=== PATIENT | female | born 1965 | race Caucasian/White ===

== ENCOUNTER 2020-10-07 06:01 | Outpatient (REF) | payer OTHER, SELFPAY ==
--- NOTE | 2020-10-07 06:06 | CT_ITS ---
EXAMINATION: CT ABDOMEN AND PELVIS WITH CONTRAST CLINICAL INFORMATION: Dysuria. COMPARISON: None. TECHNIQUE: Multidetector volumetric images were obtained from the superior aspect of the liver through the pubic symphysis following administration 85 mL of Omnipaque 350 intravenous contrast. Sagittal and coronal reformatted images were obtained on the technologist's workstation. Oral contrast: No. This CT examination was performed using dose optimization techniques as appropriate, variously including the following: *Automated exposure control *Adjustment of mA and/or kV according to patient size (this includes techniques or standardized protocols for targeted exams where dose is matched to indication/reason for exam; i.e. extremities or head) *Use of iterative reconstruction technique DLP: 385 mGy-cm FINDINGS: LUNG BASES: The lung bases are clear. The heart size is normal. LIVER, GALLBLADDER, AND BILIARY TREE: The liver is normal in size, shape, and attenuation. No focal hepatic lesion or biliary ductal dilatation is present. The gallbladder is unremarkable with no evidence of radiopaque gallstones, gallbladder wall thickening, or obvious pericholecystic inflammatory changes. PANCREAS: Unremarkable. SPLEEN: Unremarkable. ADRENAL GLANDS: The left adrenal gland is enlarged. The right adrenal gland is normal. KIDNEYS AND URETERS: The kidneys are normal in size, shape, and attenuation. No hydronephrosis, hydroureter, or calculi seen. No perinephric stranding. There are bilateral renal cysts. BLADDER: The bladder is contracted and appears unremarkable. GASTROINTESTINAL TRACT: There is scattered stool and gas seen throughout the colon without significant distention. Oral contrast opacified small bowel loops are normal caliber. ABDOMINAL WALL: No significant hernia is appreciated. LYMPH NODES: Normal. VASCULAR: Unremarkable. PELVIC VISCERA: The uterus is anteverted and appears unremarkable. No free fluid or free air is seen. OSSEOUS STRUCTURES: There are endplate Schmorl's node and mild ventral spondylosis upper lumbar spine. Loss of disc height with endplate Schmorl's node lower dorsal spine is noted. No fracture or lytic process seen. CT/CT abdomen pelvis w con IMPRESSION: Bilateral renal cysts. No radiopaque renal calculi or hydronephrosis. Mildly enlarged left adrenal gland. Mild constipation.
[2020-10-07] MEDS: iohexoL 350 MG/ML 100 ML INFUS..BTL IV (08:39)
[2020-10-07] MEDS: Barium Sulfate Oral (Vanilla) 450 ML ORAL.SUSP 900 ML PO (08:40)
== END 2020-10-07 06:02 | disposition home or self-care (01) ==
LOC: HO.CT 06:01
PROVIDERS: PCP Internal Medicine; Visit Provider Internal Medicine
DX: R30.0 Dysuria (principal)
CPT/HCPCS: 74177; Q9967

== ENCOUNTER 2021-02-17 10:29 | Outpatient (REF) | payer OTHER, SELFPAY ==
[2021-02-17 10:36] LABS: MANUAL DIFF FLAG NO
[2021-02-17 10:46] LABS: White Blood Count 11.5 X10*3/uL (4.8-10.8)
[2021-02-17 10:47] LABS: Basophils Percent Auto 0.3 % (0-2); Eosinophils Absolute Auto 0.2 X10*3/uL (0.0-0.4); Eosinophils Percent Auto 1.9 % (0-4); Hematocrit 44.9 % (37-47); Imm Gran Abs Auto 0.05 X10*3/uL (0.00-0.03); Imm Gran Pct Auto 0.4 % (0.0-0.4); Lymphocytes Absolute Auto 3.3 X10*3/uL (1.2-4.9); Lymphocytes Percent Auto 28.8 % (20-40); Mean Corpuscular HGB Conc 33.4 g/dl (31.0-35.0); Mean Corpuscular Hemoglobin 30.6 pg (27.0-33.0); Mean Corpuscular Volume 91.6 fL (80-98); Mean Platelet Volume 10.7 fL (9.4-12.3); Monocytes Absolute Auto 1.2 X10*3/uL (0.1-1.2); Monocytes Percent Auto 10.1 % (2-11); Neutrophils Absolute Auto 6.7 X10*3/uL (2.0-8.3); Neutrophils Percent Auto 58.5 % (45-73); Platelet Count 279 X10*3/uL (160-400); Red Cell Distribution Width 12.2 % (11.0-16.0)
[2021-02-17 10:51] LABS: Glucose Urine UA 500 MG/DL (NEG); Leukocyte Esterase Urine NEG (NEG); Nitrite Urine NEG (NEG); Specific Gravity - Urine 1.025 (1.005-1.025); Urine Blood 1+ (NEG); Urine Ketones 5 MG/DL (NEG); Urine Protein NEG (NEG-TRACE)
[2021-02-17 10:55] LABS: Appearance Urine CLEAR; Color Urine YELLOW
[2021-02-17 11:09] LABS: Estimated Average Glucose 197 mg/dL; Hemoglobin A1c % 8.5 %
[2021-02-17 11:11] LABS: Squamous Epithelial Cell Urine TRACE /LPF; WBC Urine 0 /HPF (0-4)
[2021-02-17 11:33] LABS: Alanine Aminotransferase 14 U/L (0-31); Albumin Level 4.5 g/dL (3.5-5.0); Alkaline Phosphatase 86 U/L (39-117); Anion Gap 16 (12-20); Aspartate Amino Transferase 14 U/L (5-31); Bilirubin Total 0.4 mg/dL (0.0-1.0); Blood Urea Nitrogen 18 mg/dL (9-16); Calcium 9.4 mg/dL (8.4-10.2); Carbon Dioxide 22 mmol/L (22-29); Chloride 103 mmol/L (96-108); Cholesterol 165 mg/dL; Creatinine Urine 109.77 mg/dL; Estimated Glomerular Filt Rate > 60; Glucose Fasting 294 mg/dL (60-99); HDL Cholesterol 34 mg/dL; Microalbum/Creatinine Ratio Ur 52.8 ug/mg cr; Potassium 4.5 mmol/L (3.3-5.1); Sodium 136 mmol/L (135-145); Total Protein 7.8 g/dL (6.5-8.0); Triglycerides 660 mg/dL
== END 2021-02-17 10:30 | disposition home or self-care (01) ==
LOC: HO.LNP 10:29
PROVIDERS: PCP Internal Medicine; Visit Provider Internal Medicine
DX: Z01.812 Encounter for preprocedural laboratory examination (principal); E11.40 Type 2 diabetes mellitus with diabetic neuropathy, unspecified; E78.2 Mixed hyperlipidemia; Z87.448 Personal history of other diseases of urinary system
CPT/HCPCS: 80053; 80061; 81001; 82043; 83036; 85025

== ENCOUNTER 2021-10-19 15:50 | Outpatient (REF) | payer OTHER, SELFPAY ==
[2021-10-19 16:09] LABS: Appearance Urine CLEAR; Color Urine YELLOW; Glucose Urine UA >=1000 MG/DL (NEG); Leukocyte Esterase Urine NEG (NEG); Nitrite Urine NEG (NEG); Specific Gravity - Urine 1.015 (1.005-1.025); Urine Blood TRACE (NEG); Urine Ketones NEG (NEG); Urine Protein NEG (NEG-TRACE)
[2021-10-19 16:56] LABS: RBC Urine 0 /HPF (0); WBC Urine 0 /HPF (0-4)
== END 2021-10-19 15:51 | disposition home or self-care (01) ==
LOC: HO.LNP 15:50
PROVIDERS: Visit Provider Internal Medicine
DX: R11.2 Nausea with vomiting, unspecified (principal)
CPT/HCPCS: 81001; 81003; 87086

== ENCOUNTER 2021-10-20 11:02 | Outpatient (REF) | payer OTHER, SELFPAY ==
[2021-10-20 12:28] LABS: Alanine Aminotransferase 17 U/L (0-31); Albumin Level 4.2 g/dL (3.5-5.0); Alkaline Phosphatase 69 U/L (39-117); Anion Gap 17 (12-20); Aspartate Amino Transferase 18 U/L (5-31); Bilirubin Total 0.3 mg/dL (0.0-1.0); Blood Urea Nitrogen 11 mg/dL (9-16); Calcium 9.4 mg/dL (8.4-10.2); Carbon Dioxide 19 mmol/L (22-29); Chloride 108 mmol/L (96-108); Estimated Glomerular Filt Rate > 60; Glucose Random 205 mg/dL (60-115); Potassium 4.3 mmol/L (3.3-5.1); Sodium 140 mmol/L (135-145); Total Protein 7.3 g/dL (6.5-8.0)
== END 2021-10-20 11:03 | disposition home or self-care (01) ==
LOC: HO.LNP 11:02
PROVIDERS: Visit Provider Internal Medicine
DX: R11.2 Nausea with vomiting, unspecified (principal); R19.5 Other fecal abnormalities
CPT/HCPCS: 80053

== ENCOUNTER 2022-02-26 10:22 | Outpatient (REF) | payer OTHER, SELFPAY ==
[2022-02-26 10:27] LABS: MANUAL DIFF FLAG NO
[2022-02-26 10:56] LABS: Appearance Urine CLEAR; Color Urine YELLOW; Glucose Urine UA >=1000 MG/DL (NEG); Leukocyte Esterase Urine NEG (NEG); Nitrite Urine NEG (NEG); PH 5.5 (5.0-8.0); Urine Blood 1+ (NEG); Urine Ketones NEG (NEG); Urine Protein NEG (NEG-TRACE)
[2022-02-26 10:58] LABS: Basophils Absolute Auto 0.1 X10*3/uL (0.0-0.2); Basophils Percent Auto 0.4 % (0-2); Eosinophils Absolute Auto 0.1 X10*3/uL (0.0-0.4); Eosinophils Percent Auto 0.6 % (0-4); Hematocrit 46.7 % (37.0-47.0); Hemoglobin 15.5 g/dl (12.0-16.0); Imm Gran Abs Auto 0.07 X10*3/uL (0.00-0.03); Imm Gran Pct Auto 0.6 % (0.0-0.4); Lymphocytes Absolute Auto 2.9 X10*3/uL (1.2-4.9); Lymphocytes Percent Auto 23.1 % (20-40); Mean Corpuscular HGB Conc 33.2 g/dl (31.0-35.0); Mean Corpuscular Hemoglobin 31.3 pg (27.0-33.0); Mean Corpuscular Volume 94.2 fL (80.0-98.0); Mean Platelet Volume 10.8 fL (9.4-12.3); Monocytes Absolute Auto 1.2 X10*3/uL (0.1-1.2); Monocytes Percent Auto 9.6 % (2-11); Neutrophils Absolute Auto 8.2 x10*3/uL (2.0-8.3); Neutrophils Percent Auto 65.7 % (45-73); Platelet Count 247 X10*3/uL (160-400); Red Blood Count 4.96 X10*6/uL (4.20-5.50); Red Cell Distribution Width 12.5 % (11.0-16.0); White Blood Count 12.5 X10*3/uL (4.8-10.8)
[2022-02-26 11:00] LABS: Alanine Aminotransferase 14 U/L (0-31); Albumin Level 4.3 g/dL (3.5-5.0); Alkaline Phosphatase 75 U/L (39-117); Anion Gap 12 (12-20); Aspartate Amino Transferase 14 U/L (5-31); Bilirubin Total 0.3 mg/dL (0.0-1.0); Blood Urea Nitrogen 17 mg/dL (9-16); Calcium 9.8 mg/dL (8.4-10.2); Carbon Dioxide 25 mmol/L (22-29); Chloride 105 mmol/L (96-108); Cholesterol 155 mg/dL; Estimated Glomerular Filt Rate > 60; Glucose Fasting 208 mg/dL (60-99); HDL Cholesterol 35 mg/dL; LDL Cholesterol Calculated 60 mg/dl; Potassium 4.1 mmol/L (3.3-5.1); Sodium 138 mmol/L (135-145); Total Protein 7.6 g/dL (6.5-8.0); Triglycerides 301 mg/dL
[2022-02-26 11:08] LABS: Estimated Average Glucose 192 mg/dL; Hemoglobin A1c % 8.3 %
[2022-02-26 11:46] LABS: Creatinine Urine 59.69 mg/dL; Microalbum/Creatinine Ratio Ur 25.1 ug/mg cr
[2022-02-26 12:36] LABS: Mucus Urine 1+ /LPF; Squamous Epithelial Cell Urine 1+ /LPF
[2022-02-26 12:37] LABS: WBC Urine 0 /HPF (0-4)
== END 2022-02-26 10:23 | disposition home or self-care (01) ==
LOC: HO.LNP 10:22
PROVIDERS: PCP Internal Medicine; Visit Provider Internal Medicine
DX: Z00.00 Encounter for general adult medical examination without abnormal findings (principal); D72.829 Elevated white blood cell count, unspecified; E11.40 Type 2 diabetes mellitus with diabetic neuropathy, unspecified; E78.2 Mixed hyperlipidemia
CPT/HCPCS: 80053; 80061; 81001; 81003; 82043; 83036; 85025

== ENCOUNTER 2023-03-03 11:09 | Outpatient (REF) | payer OTHER, SELFPAY ==
[2023-03-03 11:14] LABS: MANUAL DIFF FLAG NO
[2023-03-03 11:52] LABS: Appearance Urine Clear; Basophils Absolute Auto 0.1 X10*3/uL (0.0-0.2); Basophils Percent Auto 0.5 % (0-2); Color Urine Yellow; Eosinophils Absolute Auto 0.1 X10*3/uL (0.0-0.4); Eosinophils Percent Auto 0.8 % (0-4); Glucose Urine UA >=1000 mg/dL (Negative); Hematocrit 48.2 % (37.0-47.0); Hemoglobin 15.8 g/dl (12.0-16.0); Imm Gran Abs Auto 0.05 X10*3/uL (0.00-0.03); Imm Gran Pct Auto 0.5 % (0.0-0.4); Leukocyte Esterase Urine Negative (Negative); Lymphocytes Absolute Auto 2.5 X10*3/uL (1.2-4.9); Mean Corpuscular HGB Conc 32.8 g/dl (31.0-35.0); Mean Corpuscular Hemoglobin 30.6 pg (27.0-33.0); Mean Corpuscular Volume 93.2 fL (80.0-98.0); Mean Platelet Volume 10.3 fL (9.4-12.3); Monocytes Percent Auto 9.4 % (2-11); Neutrophils Absolute Auto 6.9 x10*3/uL (2.0-8.3); Neutrophils Percent Auto 64.8 % (45-73); Nitrite Urine Negative (Negative); PH 5.5 (5.0-9.0); Platelet Count 245 X10*3/uL (160-400); Red Blood Count 5.17 X10*6/uL (4.20-5.50); Red Cell Distribution Width 13.2 % (11.0-16.0); Specific Gravity - Urine >= 1.030 (1.005-1.025); UMIC TRIGGER UACC YES; Urine Blood Negative (Negative); Urine Ketones Negative (Negative); Urine Protein Negative (Neg-Trace); White Blood Count 10.6 X10*3/uL (4.8-10.8)
[2023-03-03 11:56] LABS: Bacteria Urine None Seen (None Seen); Hyaline Casts Urine 0-2 /LPF (0-2); RBC Urine 0-2 /HPF (0-2); Squamous Epithelial Cell Urine 0-2 /HPF (0-2); WBC Urine 0-5 /HPF (0-5)
[2023-03-03 12:03] LABS: Alanine Aminotransferase 16 U/L (0-31); Albumin Level 4.3 g/dL (3.5-5.0); Alkaline Phosphatase 64 U/L (39-117); Anion Gap 13 (12-20); Aspartate Amino Transferase 17 U/L (5-31); Bilirubin Total 0.6 mg/dL (0.0-1.0); Blood Urea Nitrogen 18 mg/dL (9-16); Calcium 9.4 mg/dL (8.4-10.2); Carbon Dioxide 24 mmol/L (22-29); Chloride 107 mmol/L (96-108); Cholesterol 164 mg/dL; Estimated Glomerular Filt Rate > 60; Glucose Fasting 151 mg/dL (60-99); HDL Cholesterol 40 mg/dL; LDL Cholesterol Calculated 99 mg/dl; Potassium 4.3 mmol/L (3.3-5.1); Sodium 140 mmol/L (135-145); Total Protein 7.4 g/dL (6.5-8.0); Triglycerides 125 mg/dL
[2023-03-03 12:07] LABS: Estimated Average Glucose 154 mg/dL
[2023-03-03 12:35] LABS: Creatinine Urine 70.35 mg/dL; Microalbum/Creatinine Ratio Ur 22.7 ug/mg cr
== END 2023-03-03 11:10 | disposition home or self-care (01) ==
LOC: HO.LNP 11:09
PROVIDERS: Visit Provider Internal Medicine
DX: Z00.00 Encounter for general adult medical examination without abnormal findings (principal); E11.9 Type 2 diabetes mellitus without complications; E78.2 Mixed hyperlipidemia; D72.829 Elevated white blood cell count, unspecified
CPT/HCPCS: 80053; 80061; 81001; 82043; 83036; 85025

== ENCOUNTER 2023-04-21 14:51 | Outpatient (REF) | payer OTHER, SELFPAY ==
[2023-04-21 15:26] LABS: Appearance Urine Cloudy; Color Urine Yellow; Glucose Urine UA >=1000 mg/dL (Negative); Leukocyte Esterase Urine Trace (Negative); Nitrite Urine Negative (Negative); PH 5.5 (5.0-9.0); Specific Gravity - Urine >= 1.030 (1.005-1.025); UMIC TRIGGER UACC YES; Urine Blood Large (3+) (Negative); Urine Ketones Negative (Negative); Urine Protein Trace mg/dL (Neg-Trace)
[2023-04-21 15:31] LABS: Bacteria Urine None Seen (None Seen); Hyaline Casts Urine 0-2 /LPF (0-2); RBC Urine >20 /HPF (0-2); UACC Culture Trigger YES; WBC Urine >50 /HPF (0-5)
== END 2023-04-21 14:52 | disposition home or self-care (01) ==
LOC: HO.LNP 14:51
PROVIDERS: Visit Provider Internal Medicine
DX: N30.01 Acute cystitis with hematuria (principal)
CPT/HCPCS: 81001; 87086; 87088; 87186

== ENCOUNTER 2023-05-05 11:25 | Outpatient (REF) | payer OTHER, SELFPAY ==
[2023-05-05 12:05] LABS: Appearance Urine Clear; Color Urine Yellow; Glucose Urine UA >=1000 mg/dL (Negative); Leukocyte Esterase Urine Negative (Negative); Nitrite Urine Negative (Negative); PH 5.5 (5.0-9.0); Specific Gravity - Urine >= 1.030 (1.005-1.025); UMIC TRIGGER UA YES; Urine Blood Negative (Negative); Urine Ketones Negative (Negative); Urine Protein Negative (Neg-Trace)
[2023-05-05 12:08] LABS: Bacteria Urine None Seen (None Seen); Hyaline Casts Urine 0-2 /LPF (0-2); Squamous Epithelial Cell Urine 0-2 /HPF (0-2); WBC Urine 0-5 /HPF (0-5)
== END 2023-05-05 11:26 | disposition home or self-care (01) ==
LOC: HO.LNP 11:25
PROVIDERS: Visit Provider Internal Medicine
DX: N30.01 Acute cystitis with hematuria (principal)
CPT/HCPCS: 81001

== ENCOUNTER 2023-06-09 11:45 | Outpatient (REF) | payer OTHER, SELFPAY ==
[2023-06-09 12:09] LABS: Appearance Urine Clear; Color Urine Yellow; Glucose Urine UA >=1000 mg/dL (Negative); Leukocyte Esterase Urine Negative (Negative); Nitrite Urine Negative (Negative); PH 5.5 (5.0-9.0); Specific Gravity - Urine >= 1.030 (1.005-1.025); UMIC TRIGGER UACC YES; Urine Blood Negative (Negative); Urine Ketones Negative (Negative); Urine Protein Negative (Neg-Trace)
[2023-06-09 12:13] LABS: Bacteria Urine None Seen (None Seen); Hyaline Casts Urine 0-2 /LPF (0-2); RBC Urine 0-2 /HPF (0-2); Squamous Epithelial Cell Urine 0-2 /HPF (0-2); WBC Urine 0-5 /HPF (0-5)
== END 2023-06-09 11:46 | disposition home or self-care (01) ==
LOC: HO.LNP 11:45
PROVIDERS: Visit Provider Internal Medicine
DX: R31.9 Hematuria, unspecified (principal)
CPT/HCPCS: 81001

== ENCOUNTER 2023-07-13 08:15 | Day surgery (SDC) | payer OTHER, SELFPAY ==
[2023-07-13 08:38] VITALS: BP 135/62; PULSE 84; RESP 18; TEMP 36.2; O2SAT 97; BMI 23.0
[2023-07-13 08:39] VITALS: BMI 23.0
--- NOTE | 2023-07-13 08:39 | HO.ANESPROP2 ---
PMFSH Active Problems Active Problems: All Active Problems (Updated 09/09/22 @ 09:47 by Em Mcnally RN) Diabetes (Acute) COPD SMOKER PSORIASIS Past Medical History Patient : No Surgical History History of Problems with Anesthesia: No Social History Social History Tobacco use type: Cigarette Meds Allergies Allergy/AdvReac Type Severity Reaction Status Date / Time sulfamethoxazole Allergy Unknown DIARRHEA Unverified 07/24/20 17:13 [From BACTRIM] trimethoprim [From BACTRIM] Allergy Unknown DIARRHEA Unverified 07/24/20 17:13 Active Medications: Current Medications Sodium Biphosphate/Sodium Phosphate (Sodium Phosphate,Jefferson-Dibasic 133 Ml Enema) 133 ml DC ONCE PRN PRN Reason: Poor Colonoscopy Prep Results Exam Exam Date and Time: July 13, 2023 0839 Airway Mallampati Class: II TM Dist: >3cm Neck ROM: Full Loose/Missing/Broken Teeth: No Heart: RRR Lungs: CTA Assessment and Plan Assessment Anesthesia Assessment: Anesthesia Plan Discussed and Chart Reviewed Final Anesthetic Review History of Problems with Anesthesia: No NPO: Yes ASA Class: II Final Preanesthetic Review: Meds/Allgs Chart Reviewed, Consent Obtained/Reviewed and Anes Risks/Benef Reviewed Patient Risk: Low Procedure Risk: Low Anesthetic Plan Anesthetic Plan: MAC: Disposition: Standard PACU
[2023-07-13 09:00] LABS: Glucose, Whole Blood 185 mg/dL (60-115)
[2023-07-13 09:52] VITALS: BP 111/62; PULSE 78; RESP 16; TEMP 36.6; O2SAT 97
--- NOTE | 2023-07-13 09:56 | PM.OP ---
Brief Operative Note Date of Service: 07/13/23 Pre-op diagnosis: Screening Post-op diagnosis: other (Colon polyps) Procedure: Colonoscopy to the cecum and TI with bx/removal of polyps Surgeon: Constantine Coulter Anesthesia: MAC Was an Configuration Management Consultant used for this Procedure?: No Estimated blood loss (mL): 2.0 Pathology: other (A. Transverse colon polyp B. Polyp at 15cm) Condition: stable Disposition: PACU
[2023-07-13 10:07] VITALS: BP 128/67; PULSE 68; RESP 16; TEMP 36.5; O2SAT 99
--- NOTE | 2023-07-13 10:21 | OP_ITS ---
DATE OF SERVICE: 07/13/2023 SURGEON: Constantine Coulter MD INDICATIONS: The patient presents for evaluation of colorectal cancer screening and personal history of tubular adenoma of the colon. Full consent has been obtained from her for this, including risks of bleeding and perforation. PREOPERATIVE DIAGNOSIS: POSTOPERATIVE DIAGNOSIS: PROCEDURE PERFORMED: Colonoscopy to cecum and terminal ileum with biopsy and removal of polyps. ESTIMATED BLOOD LOSS: COMPLICATIONS: ANESTHESIA: Medication used; monitored anesthesia care. ASSISTANTS: SPECIMENS: PREOPERATIVE DIAGNOSES: Colorectal cancer screening and personal history of tubular adenoma of the colon. POSTOPERATIVE DIAGNOSES: Colorectal cancer screening and personal history of tubular adenoma of the colon, colon polyps, diverticulosis, and internal hemorrhoids. DESCRIPTION OF PROCEDURE: The patient was placed in the left lateral decubitus position. The digital rectal exam revealed no abnormalities. The Olympus videopediatric colonoscope was entered into the rectum and advanced easily to the cecum. Once in the cecum, I did identify normal-appearing cecal pouch with appendiceal orifice and a normal-appearing ileocecal valve. The terminal ileum was cannulated and appeared normal. The scope was withdrawn back in the colon. The entire cecum and ileocecal valve appeared normal. The scope was slowly withdrawn assessing all mucosal surfaces carefully. Preparation was excellent. In the transverse colon and at 15 cm were flat less than 5 mm polyps, which were each biopsied and completely removed with cold biopsy forceps. I did not visualize any other polyps, colitis, nor angiodysplasia. There was a mild amount of sigmoid diverticulosis. In the rectum, scope was retroflexed visualizing small internal hemorrhoids, but no other pathology. The rectal mucosa appeared normal. The scope was straightened and withdrawn from the patient. She tolerated the procedure well and was returned to recovery area in stable condition. IMPRESSION: 1. Colon polyps. 2. Diverticulosis. 3. Internal hemorrhoids. PLAN: The results of the pathology will be checked. I would recommend a repeat colonoscopy in 5 years for further screening. She will otherwise see me on a p.r.n. basis. MD ANKITA Copeland/CRYSTAL / [phone]
== END 2023-07-13 10:46 | disposition home or self-care (01) ==
PROVIDERS: PCP Internal Medicine; Visit Provider Internal Medicine
PROC: 0DJD8ZZ Inspection of Lower Intestinal Tract, Via Natural or Artificial Opening Endoscopic (ICD-10-PCS; CPT 45378; principal; 2023-07-13 08:30)
DX: Z12.11 Encounter for screening for malignant neoplasm of colon (principal); Z86.010 Personal history of colon polyps; D12.3 Benign neoplasm of transverse colon; D12.7 Benign neoplasm of rectosigmoid junction; K57.30 Diverticulosis of large intestine without perforation or abscess without bleeding; K64.8 Other hemorrhoids; F17.210 Nicotine dependence, cigarettes, uncomplicated; E11.9 Type 2 diabetes mellitus without complications; J45.909 Unspecified asthma, uncomplicated; R32 Unspecified urinary incontinence; L40.9 Psoriasis, unspecified; Z79.4 Long term (current) use of insulin; Z79.899 Other long term (current) drug therapy; Z88.2 Allergy status to sulfonamides; Z79.51 Long term (current) use of inhaled steroids
CPT/HCPCS: 45380; 82947; 88305

== ENCOUNTER 2024-03-05 16:19 | Outpatient (REF) | payer OTHER, SELFPAY ==
[2024-03-05 16:47] LABS: Appearance Urine Clear; Color Urine Yellow; Glucose Urine UA >=1000 mg/dL (Negative); Leukocyte Esterase Urine Moderate (2+) (Negative); Nitrite Urine Negative (Negative); Specific Gravity - Urine >= 1.030 (1.005-1.025); UMIC TRIGGER UA YES; Urine Blood Moderate (2+) (Negative); Urine Ketones Negative (Negative); Urine Protein Trace mg/dL (Neg-Trace)
[2024-03-05 16:50] LABS: Bacteria Urine 2+ (None Seen); Hyaline Casts Urine 0-2 /LPF (0-2); Squamous Epithelial Cell Urine 0-2 /HPF (0-2); WBC Urine >50 /HPF (0-5)
== END 2024-03-05 16:20 | disposition home or self-care (01) ==
LOC: HO.LNP 16:19
PROVIDERS: Visit Provider Internal Medicine
DX: N39.0 Urinary tract infection, site not specified (principal)
CPT/HCPCS: 81001; 87086; 87088; 87186

== ENCOUNTER 2024-03-08 10:42 | Outpatient (REF) | payer OTHER, SELFPAY ==
[2024-03-08 10:47] LABS: MANUAL DIFF FLAG NO
[2024-03-08 11:15] LABS: Basophils Percent Auto 0.4 % (0-2); Eosinophils Absolute Auto 0.1 X10*3/uL (0.0-0.4); Eosinophils Percent Auto 0.9 % (0-4); Hematocrit 45.3 % (37.0-47.0); Hemoglobin 14.9 g/dl (12.0-16.0); Imm Gran Abs Auto 0.05 X10*3/uL (0.00-0.03); Imm Gran Pct Auto 0.5 % (0.0-0.4); Lymphocytes Absolute Auto 2.7 X10*3/uL (1.2-4.9); Lymphocytes Percent Auto 24.6 % (20-40); Mean Corpuscular HGB Conc 32.9 g/dl (31.0-35.0); Mean Corpuscular Hemoglobin 30.3 pg (27.0-33.0); Mean Corpuscular Volume 92.3 fL (80.0-98.0); Mean Platelet Volume 10.6 fL (9.4-12.3); Monocytes Absolute Auto 1.1 X10*3/uL (0.1-1.2); Monocytes Percent Auto 9.9 % (2-11); Neutrophils Absolute Auto 7.1 x10*3/uL (2.0-8.3); Neutrophils Percent Auto 63.7 % (45-73); Platelet Count 264 X10*3/uL (160-400); Red Blood Count 4.91 X10*6/uL (4.20-5.50); Red Cell Distribution Width 13.8 % (11.0-16.0); White Blood Count 11.1 X10*3/uL (4.8-10.8)
[2024-03-08 11:27] LABS: Estimated Average Glucose 163 mg/dL; Hemoglobin A1c % 7.3 % (<6.0)
[2024-03-08 12:09] LABS: Alanine Aminotransferase 16 U/L (0-31); Albumin Level 4.2 g/dL (3.5-5.0); Alkaline Phosphatase 66 U/L (39-117); Anion Gap 14 (12-20); Aspartate Amino Transferase 17 U/L (5-31); Bilirubin Total 0.4 mg/dL (0.0-1.0); Blood Urea Nitrogen 16 mg/dL (9-16); Carbon Dioxide 23 mmol/L (22-29); Chloride 105 mmol/L (96-108); Cholesterol 145 mg/dL (<200); Estimated Glomerular Filt Rate > 60; Glucose Fasting 146 mg/dL (60-99); HDL Cholesterol 43 mg/dL (>40); LDL Cholesterol Calculated 78 mg/dL (<100); Potassium 3.9 mmol/L (3.3-5.1); Sodium 138 mmol/L (135-145); Total Protein 8.1 g/dL (6.5-8.0); Triglycerides 122 mg/dL (<150)
== END 2024-03-08 10:43 | disposition home or self-care (01) ==
LOC: HO.LNP 10:42
PROVIDERS: Visit Provider Internal Medicine
DX: Z00.00 Encounter for general adult medical examination without abnormal findings (principal); E11.9 Type 2 diabetes mellitus without complications; E78.2 Mixed hyperlipidemia; Z87.448 Personal history of other diseases of urinary system; D72.829 Elevated white blood cell count, unspecified
CPT/HCPCS: 80053; 80061; 83036; 85025

== ENCOUNTER 2024-03-22 10:51 | Outpatient (REF) | payer OTHER, SELFPAY ==
[2024-03-22 11:09] LABS: Appearance Urine Clear; Color Urine Yellow; Glucose Urine UA >=1000 mg/dL (Negative); Leukocyte Esterase Urine Negative (Negative); Nitrite Urine Negative (Negative); PH 5.5 (5.0-9.0); Specific Gravity - Urine >= 1.030 (1.005-1.025); UMIC TRIGGER UACC YES; Urine Blood Negative (Negative); Urine Ketones Negative (Negative); Urine Protein Negative (Neg-Trace)
[2024-03-22 11:30] LABS: Amphetamine Screen Urine Not Detected (Not Detect); Barbiturates, Urine Not Detected (Not Detect); Benzodiazepines Screen Urine Not Detected (Not Detect); Buprenorphine Scr Not Detected (Not Detect); Cannabinoid Screen Urine Not Detected (Not Detect); Cocaine Screen Urine Not Detected (Not Detect); Fentanyl, urine Not Detected (Not Detect); Methadone Screen, Urine Not Detected (Not Detect); Opiate Screen Urine Not Detected (Not Detect); Oxycodone Screen Urine Not Detected (Not Detect); Phencyclidine Screen Urine Not Detected (Not Detect)
[2024-03-22 12:05] LABS: Bacteria Urine None Seen (None Seen); Hyaline Casts Urine 0-2 /LPF (0-2); RBC Urine 0-2 /HPF (0-2); Squamous Epithelial Cell Urine 0-2 /HPF (0-2); WBC Urine 0-5 /HPF (0-5)
== END 2024-03-22 10:52 | disposition home or self-care (01) ==
LOC: HO.LNP 10:51
PROVIDERS: Visit Provider Internal Medicine
DX: T88.7XXA Unspecified adverse effect of drug or medicament, initial encounter (principal); T50.905A Adverse effect of unspecified drugs, medicaments and biological substances, initial encounter; Y92.9 Unspecified place or not applicable; Z51.89 Encounter for other specified aftercare
CPT/HCPCS: 80307; 81001; 81003

== ENCOUNTER 2024-11-15 10:52 | Outpatient (AMB) | payer OTHER, SELFPAY ==
[2024-11-15 10:53] VITALS: BP 132/68; PULSE 96; BMI 23.8
--- NOTE | 2024-11-15 10:53 | A.OFFVIS_ITS ---
Vital Signs 11/15/24 10:53 Height 5 ft 9 in Weight 160 lb 14.999 oz BMI 23.8 BP 132/68 Blood Pressure Location Rt brachial Position Sitting Pulse 96 Pulse Source Pulse Oximeter Intake Visit Reasons: T2DM/Left vm Intake Note: NEW Patient presents today to establish treatment for Type 2 Diabetes Mellitus: Last Diabetic eye exam was on: 09/2023 Last Podiatry exam was on: Patient does not see a Vacuum Closing Machine Operator Most recent HbA1c: 7.8%, 10/16/2024 done at PCP Office Random Glucose- 142 mg/dL, Today Pool Nurse Required: No Accompanied by: Self / Same As Patient Allergies sulfamethoxazole [From BACTRIM] Allergy (Unknown, Verified 11/15/24 11:02) DIARRHEA trimethoprim [From BACTRIM] Allergy (Unknown, Verified 11/15/24 11:02) DIARRHEA FARXIGA Adverse Reaction (Intermediate, Uncoded 11/15/24 11:06) UTI HPI Comments Details: The patient is a 59 year old female presenting for diabetes consultation Medical history:neuropathy, psoriatic arthritis Last A1C 7.8% Current medications: Januvia 50mg (added 10/16/24), Lantus 22 units daily Previous: Intolerant of metformin, farxiga Testing with one touch ultra once daily. 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 HEENT: Denies changes in vision and hearing. RESPIRATORY: Denies SOB and cough. CV: Denies palpitations and CP GI: Denies abdominal pain, nausea, vomiting and diarrhea. : Denies dysuria and urinary frequency. MSK: Denies new myalgia and joint pain. SKIN: Denies rash and pruritus. NEUROLOGICAL: Denies headache PSYCHIATRIC: Denies recent changes in mood. PHYSICAL EXAM: GENERAL: Alert and oriented x 3. NAD EYES: EOMI. Anicteric. HENT: Moist mucous membranes. No scleral icterus. No cervical lymphadenopathy. LUNGS: Clear to auscultation bilaterally. CARDIOVASCULAR: Regular rate and rhythm. No murmur. No JVD. ABDOMEN: Soft, non-tender +bs EXTREMITIES: No edema. Non-tender. SKIN: No rashes or lesions. Warm. NEUROLOGIC: No focal neurological deficits. CN II-XII grossly intact PSYCHIATRIC: Cooperative. Appropriate mood and affect [facility] Medical History (Updated 11/15/24 @ 14:15 by Rayna Siegel MD) Current smoker History of chronic obstructive pulmonary disease Hx: UTI (urinary tract infection) Hx of type 2 diabetes mellitus Surgical History (Updated 11/15/24 @ 11:02 by THOMPSON Barajas) No pertinent past surgical history Family History (Updated 11/15/24 @ 11:03 by THOMPSON Barajas) Father Afib Mother Family history of diabetes mellitus Social History (Updated 11/15/24 @ 11:27 by THOMPSON Barajas) Alcohol intake: current Alcohol intake frequency: does not drink Patient Tobacco Use Status: Current everyday Tobacco user Tobacco use type: Cigarette Physical Exam Vital Signs: Last Vital Signs Pulse 96 11/15/24 10:53 BP 132/68 11/15/24 10:53 BMI result Body Mass Index 23.8 Results Reviewed Results Reviewed: Laboratory Last Values Glucose (Clinic) 142 mg/dL (60-115) H 11/15/24 11:07 Assessment & Plan Assessment & Plan (1) Diabetes: Code(s): E11.9 - Type 2 diabetes mellitus without complications Category: Medical Qualifiers: Diabetes mellitus type: type 2 Diabetes mellitus intermediate insulin use: with intermediate use Diabetes mellitus complication status: with hyperglycemia Qualified Code(s): E11.65 - Type 2 diabetes mellitus with hyperglycemia; 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 Plan: Increase Lantus to 24 units Increase Januvia to 100mg daily Continue to monitor glucose levels, call for hyper, hypoglycemia (2) Insulin use (long-term) in type 2 diabetes: Code(s): E11.9 - Type 2 diabetes mellitus without complications; 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 Category: Medical Qualifiers: Diabetes mellitus complication status: with hyperglycemia Qualified Code(s): E11.65 - Type 2 diabetes mellitus with hyperglycemia; 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 Plan: see above Medications: New Januvia (sitagliptin phosphate) 100 mg PO DAILY 90 tabs 3RF NS E11.9 - Type 2 diabetes mellitus without complications OneTouch Verio test strips (blood sugar diagnostic) once daily 100 ea 3RF NS E11.9 - Type 2 diabetes mellitus without complications OneTouch Delica Plus Lancet (lancets) As directed 100 ea 3RF NS E11.9 - Type 2 diabetes mellitus without complications, Z79.4 - care home (current) use of insulin Lantus Solostar U-100 Insulin (insulin glargine) 24 units (0.24 mL) subcut QAM 24 mL 3RF 90 days NS E11.9 - Type 2 diabetes mellitus without complications, 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 Coding Level of Care Code Est Pt Level 4 (04473) Diagnoses Type 2 diabetes mellitus with hyperglycemia, with long-term current use of insulin E11.65; Z79.4 Diabetes mellitus type: type 2 Diabetes mellitus therapeutic consultant insulin use: with intermediate use Diabetes mellitus complication status: with hyperglycemia Type 2 diabetes mellitus with hyperglycemia, with long-term current use of insu harish E11.65; Z79.4 Diabetes mellitus complication status: with hyperglycemia
[2024-11-15 11:11] LABS: Glucose, Whole Blood 142 mg/dL (60-115)
--- OUTSIDE RECORDS SUMMARY | 2024-11-15 11:34 | XMS_ITS ---
Author Organization Kwabena Dumont MD Address [address] [place] [phone] Care Team Providers Care Inspector Experimental Assembly Name Role Phone Kwabena Dumont Primary Care Provider [phone] REASON FOR VISIT Another UTI ? D/C Farxiga Encounters Encounter Location Date Provider Diagnosis Kwabena Dumont MD [address] [facility] [address] [place] [phone] 08/30/2024 Kwabena Dumont PLAN OF TREATMENT Next Appt Details Provider Name:Kwabena younger, 01/11/2025 07:45:00 AM, [address] [place] [address], [address], [phone], Provider Name:Kwabena younger, 03/11/2025 08:00:00 AM, [address] [place] [address], [address], [phone], Provider Name:Kwabena younger, 03/18/2025 08:30:00 AM, [address], [address], [place], [phone],
--- OUTSIDE RECORDS SUMMARY | 2024-11-15 11:34 | XMS_ITS ---
Author Organization Kwabena Dumont MD Address [address] [place] [phone] Care Team Providers Care Dock Hand Name Role Phone Kwabena Dumont Primary Care Provider ALLERGIES Allergen (clinical drug ingredient) Drug/Non Drug Allergy documented on EMR Reaction Allergy Type Onset Date Status varenicline Chantix mood swing Drug Allergy Acti ve sulfamethoxazole / trimethoprim Bactrim diarrhea, h/a nausea Drug Allergy Active REASON FOR VISIT ? hernia after coughing, needs a note to stay out of work next week MEDICATIONS Medication SIG (Take, Route, Frequency, Duration) Notes Start Date End Date Status Hydrocod Robe-Chlorphe Robe ER 10-8 MG/5ML 5 mL as needed Orally every 12 hrs for 10 days 01/06/2023 Not-Taking Lantus SoloStar 100 UNIT/ML 20 units Subcutaneous daily 02/09/2024 Active Wixela Inhub 250-50 MCG/ACT INHALE 1 PUFF TWICE A DAY. RINSE MOUTH AFTER USE. for 90 Active OneTouch Ultra - USE THREE TIMES A DA Y TO CHECK BLOOD SUGARS three times a day for 90 days Active Albuterol Sulfate (2.5 MG/3ML) 0.083% 3 mL as needed Inhalation every 6 hrs Not-Takin g Skyrizi (150 MG Dose) 75 MG/0.83ML 1.66 ml Subcutaneous Active Albuterol Sulfate HFA 108 (90 Base) MCG/ACT 1 puff as needed Inhalation every 4 hrs for 90 days 02/23/2024 Active BD Pen Needle Micro U/F 32G X 6 MM as directed sq daily for 90 days 10/24/2023 Active Guaiatussin AC 100-10 MG/5ML 10 mL as needed Orally every 4 hrs for 10 days 11/09/2024 Active traZODone HCl 50 MG 1 tablet at bedtime as needed Orally Once a day for 30 days 11/09/2024 Active Calcipotriene 0.005 % APPLY A SMALL AMOU NT ONCE DAILY EXTERNALLY ONCE A DAY for 30 Active OneTouch Test n/a as directed In Vitro DX: E11.9 tid for 90 days 09/06/2015 Active Cefpodoxime Proxetil 200 MG 1 tablet with food Orally every 12 hrs Not-Taking Pyridium 200 MG 1 tablet after meals Orally Three times a day Not-Taking Januvia 50 MG as directed Orally O nce a day for 30 days 10/16/2024 Active PROBLEMS Problem Type ICD Code Onset Dates Problem Status W/U Status Risk SNOMED Code Notes Problem Primary insomnia (F51.01) Active confirmed 8740242 VITAL SIGNS BMI 23.72 kg/m2 11/09/2024 Blood pressure systolic 140 mm Hg 11/09/19 25 Blood pressure diastolic 70 mm Hg 025 Height 69.5 in 11/09/2024 Weight 163 lbs 11/09/2024 Encounters Encounter Location Date Provider Diagnosis Kwabena Dumont MD [address] [place] [address] Drive [address] [place], [place] [phone] 11/09/2024 Kwabena Dumont Strain of abdominal muscle, subsequent encounter S39.011D ; Current smoker F17.200 ; Chronic obstructive pulmonary disease, unspecified J44.9 ; Acute cough R05.1 and Primary insomnia F51.01 ASSESSMENTS Encounter Date Diagnosis Assessment Notes Treatment Notes Treatment Clinical Notes 11/09/2024 Strain of abdominal muscle, subsequent encounter (ICD-10 - S39.011D) no treatment needed, 11/09/2024 Current smoker (ICD-10 - F17.200) advised to quit, indicated she is not ready 11/09/2024 Chronic obstructive pulmonary disease, unspecified (ICD-10 - J44.9) would benefit from not smoking, patient verbalized understanding of medication and directions for use 11/09/2024 Acute cough (ICD-10 - R05.1) 11/09/2024 Primary insomnia (ICD-10 - F51.01) PLAN OF TREATMENT Medication Medication Name Sig Start Date Stop Date Notes Guaiatussin AC 100-10 MG/5ML 10 mL as ne eded Orally every 4 hrs for 10 days 11/09/2024 traZODone HCl 50 MG 1 tablet at bedtime as needed Orally Once a day for 30 days 11/09/2024 Treatment Notes Assessment Notes Strain of abdominal muscle, subsequent encounter no treatment needed, Current smoker advised to quit, ind icated she is not ready Chronic obstructive pulmonar y disease, unspecified would benefit from not smoking, patient verbalized understanding of medication and directions for use Next Appt Details Provider Name:Kwabena younger, 01/11/2025 07:45:00 AM, [address] [place] [address], [address], [phone], Provider Name:Kwabena younger, 03/11/2025 08:00:00 AM, [address] [place] [address], [phone], Provider Name:Kwabena younger, 03/18/2025 08:30:00 AM, [address] [place] [address], [phone], Progress Notes * Examination Category Sub-Category Detail Notes General Examination GENERAL APPEARANCE: ill-appe aring HEAD: normocephalic HEART: no murmurs, rubs, ga llops , regular rate and rhythm LUNGS: abnormal , scattered wheezes throughout ABDOMEN: abnormal with marked superficial tenderness to palpation of the muscles SKIN: good turgor
--- OUTSIDE RECORDS SUMMARY | 2024-11-15 11:34 | XMS_ITS ---
Author Organization Kwabena Dumont MD Address [address] [place] [phone] Care Team Providers Care Asset Protection Assistant Name Role Phone Kwabena Dumont Primary Care Provider ALLERGIES Allergen (clinical drug ingredient) Drug/Non Drug Allergy documented on EMR Reaction Allergy Type Onset Date Status varenicline Chantix mood swing Drug Allergy Acti ve sulfamethoxazole / trimethoprim Bactrim diarrhea, h/a nausea Drug Allergy Active RESULTS Component Value Reference Range Notes Hemoglobin A1c Reviewed date:10/16/2024 08:32:28 AM Interpretation: Performing Lab: Notes/Report: Value 7.8 Hemoglobin A1c Glucose, finger stick Reviewed date:10/16/2024 08:26:12 AM Interpretation: Performing Lab: Notes/Report: Value 169 REASON FOR REFERRAL Reason DM Diagnosis 1 Type 2 diabetes sidra itus without complications (E11.9) Referral Organization Kwabena Dumont MD Referring Provider First Name Kwabena Referring Provider Last Name Julia Referring Provider Speciality Internal M edicine Referred Provider Constantine Garcia Referred Provider Specialty Endocrinolog y General Notes Lala Newman 08:52:15 AM EST > info faxedPaty Annette 10/25/2024 01:27:01 PM EST > was told by office patient is aware of appt., Lala Newman 10/25/2024 01:30:50 PM EST > [phone] Paty Slade Annette 10/25/2024 02:21:30 PM EST > [facility] referrals Dr. Aragon [id number] 6v 10-25-2024 to 01-23-2025, Lala Newman 10/25/2024 02:25:10 PM EST > appt is with Dr. Rayna Vaughan Referral Priority Routine Referral Appointment Date 11/15/2024 Reason current smoker lung cancer screening Diagnosis 1 Current smoker (F17. 200) Referral Organization Kwabena Dumont MD Referring Provider First Name Kwabena Referring Provider Last Name Julia Referring Provider Speciality Internal edicine Referred Provider CAMILLE MARIE Referred Provider Specialty Pulmonary Di seases General Notes Lala Newman 11:32:09 AM EST > info faxed Paty Annette 10/25/2024 01:33:27 PM EST > was told appt is being worked on , Lala Newman 11/02/2024 10:52:15 AM EST > was patient has ot returned there phones calls, left message for patient to call their offie to set up an appt Referral Priority Routine REASON FOR VISIT 3 MO F/U MEDICATIONS Medication SIG (Take, Route, Frequency, Duration) Notes Start Date End Date Status Pyridium 200 MG 1 tablet after meals Orally Three times a day Active Cefpodoxime Proxetil 200 MG 1 tablet with food Orally every 12 hrs Active Wixela Inhub 250-50 MCG/ACT 1 puff Inhalation Twice a day Active OneTouch Test n/a as directed In Vitro DX: E11.9 tid for 90 days 09/06/2015 Active Calcipotriene 0.005 % APPLY A SMALL AMOU NT ONCE DAILY EXTERNALLY ONCE A DAY for 30 Active Albuterol Sulfate (2.5 MG/3ML) 0.083% 3 mL as needed Inhalation every 6 hrs Not-Takin g Hydrocod Robe-Chlorphe Robe ER 10-8 MG/5ML 5 mL as needed Orally every 12 hrs for 10 days 01/06/2023 Not-Taking Januvia 50 MG as directed Orally O nce a day for 30 days 10/16/2024 Active Lantus SoloStar 100 UNIT/ML 20 units Subcutaneous daily 02/09/2024 Active OneTouch Ultra - USE THREE TIMES A DA Y TO CHECK BLOOD SUGARS three times a day for 90 days Active BD Pen Needle Micro U/F 32G X 6 MM as directed sq daily for 90 days 10/24/2023 Active Albuterol Sulfate HFA 108 (90 Base) MCG/ACT 1 puff as needed Inhalation every 4 hrs for 90 days 02/23/2024 Active Skyrizi (150 MG Dose) 75 MG/0.83ML 1.66 ml Subcutaneous Active VITAL SIGNS BMI 23.72 kg/m2 10/16/2024 Blood pressure systolic 128 mm Hg 10/16/20 24 Blood pressure diastolic 70 mm Hg 024 Height 69.5 in 10/16/2024 Weight 163 lbs 10/16/2024 Encounters Encounter Location Date Provider Diagnosis Kwabena Dumont MD [address] [place] [address] [place] [phone] 10/16/2024 Kwabena Dumont Type 2 diabetes mellitus without complications E11.9 ; UTI symptoms R39.9 ; Chronic obstructive pulmonary disease, unspecified J44.9 and Current smoker F17.200 ASSESSMENTS Encounter Date Diagnosis Assessment Notes Treatment Notes Treatment Clinical Notes 10/16/2024 Type 2 diabetes mellitus without complications (ICD-10 - E11.9) patient verbalized understanding of medication nd directions for use, referral to endocrine at [facility] 10/16/2024 UTI symptoms (ICD-10 - R39.9) having frequent uti's / stopped aug 23/ going to see urogynecologist this month 10/16/2024 Chronic obstructive pulmonary disease, unspecified (ICD-10 - J44.9) 10/16/2024 Current smoker (ICD-10 - F17.200) referral to lung cancer screening, no willing to quit PLAN OF TREATMENT Medication Medication Name Sig Start Date Stop Date Notes Januvia 50 MG as directed Orally Once a day for 30 days Treatment Notes Assessment Notes Type 2 diabetes mellitus wit hout complications patient verbalized understanding of medication nd directions for use, referral to endocrine at [facility] UTI symptoms having frequent uti' s / stopped farxiga aug 23/ going to see urogynecologist this month Current smoker referral to lung can cer screening, no willing to quit Referrals Referral Date Details 11/15/2024 11/15/2024, DMEdu current smoker lung cancer screening , CAMILLE MARIE Next Appt Details Follow Up: 4 Weeks, Reason: Provider Name:Kwabena younger, 01/11/2025 07:45:00 AM, [address] [place] [address], Suite [facility], [place], [place], [phone], Provider Name:Kwabena younger, 03/11/2025 08:00:00 AM, [address] [place] [address], Suite [facility], [place], [place], [phone], Provider Name:Kwabena younger, 03/18/2025 08:30:00 AM, [address] [place] [address], [address], [place], [place], [phone], Progress Notes * Examination Category Sub-Category Detail Notes General Examination GENERAL APPEARANCE: alert, w ell hydrated, in no distress HEAD: normocephalic HEART: regular rate and rhy thm , no murmurs, rubs, gallops LUNGS: diffuse wheezes,no r ales, rhonchi , good air movement , clear to auscultation bilaterally SKIN: good turgor Consultation Request Notes Referral Date Referring Provider Referred Provider Liu little 10/16/2024 Kwabena Dumont Robert DM 10/16/2024 Kwabena Dumont [place] current smoker lung cancer screening
--- OUTSIDE RECORDS SUMMARY | 2024-11-15 11:34 | XMS_ITS | Continuity of Care Document ---
Author Organization [facility] ter Address [address] [place] [id number]- Care Team Providers Care Legal Document Specialist Name Role Phone uJlia CAMARENA, Kwabena Primary Care Physician [phone] [id number] Date[facility]s): 11/08/24 - 11/08/[address] [address]- Encounter Diagnosis Cough(Final) - 11/08/24 Right upper quadrant pain(Final) - 11/08/24 Discharge Disposition: A-D/C Home Attending Physician: Lisa Grigsby MD Admitting Physician: Lisa Grigsby MD Referring Physician: Not on Staff, Referring MD Encounter Type: Disch ES Allergies, Adverse Reactions, Alerts Substance Criticality Severity Reaction Reaction Severity Status codeine/guaifenesin/PSE nausea Active Bactrim Active Medications Albuterol 0 Refills, Maintenance, 08/28/12 3:48:25 PM EDT Start Date: 08/28/12 Status: Ordered Repeat number: 1 Cranberry oral capsule 0 Refills, Maintenance, 11/08/24 7:19:00 AM EST, Partial fill upon patient request if the prescription is for a schedule II opioid drug. Start Date: 11/08/24 Status: Ordered Repeat number: 1 Estrace Vaginal Cream 0.1 mg/g See Instructions, Apply a pea sized dab to affected area (on finger, not with applicator) nightly for 2 weeks, then 2 nights per week thereafter, # 42.5 Gm, 3 Refills, Maintenance, 08/23/24 11:54:00 AM EDT, [facility]/pharmacy #[id number], Partial fill upon patient request if the prescription is for a schedule II opioid drug., 173, cm, 08/23/24 11:16:00 EDT, Height Start Date: 08/23/24 Status: Ordered Quantity: 42.5 Unit: g Repeat number: 4 Indication: Other specified menopausal and perimenopausal disorders Lantus Inj = 20 units, Subcutaneous Infusion, 0 Refills, Maintenance, 06/20/19 8:43:34 AM EDT Start Date: 06/20/19 Status: Ordered Repeat number: 1 Skyrizi = 150 mg, Subcutaneous Infusion, Every 3 months, 0 Refills, Maintenance, 06/24/20 9:33:00 AM EDT Start Date: 06/24/20 Status: Ordered Repeat number: 1 Vitamin B12 0 Refills, Maintenance, 11/08/24 7:19:00 AM EST, Partial fill upon patient request if the prescription is for a schedule II opioid drug. Start Date: 11/08/24 Status: Ordered Repeat number: 1 Vitamin D 73824 iu oral capsule 50,000 International_Units, By Mouth, Daily, Refills 0, Maintenance, 11/08/24 7:19:00 AM EST, Partialfill upon patient request if the prescription is for a schedule II opioid drug. Start Date: 11/08/24 Status: Ordered Repeat number: 1 Wixela Inhub Start Date: 08/23/24 Status: Ordered Repeat number: 1 Problem List Condition Confirmation Course Effective Dates Status Health atus Informant Asthma Confirmed Active Diabetes mellitus type 2 Confirmed Active Psoriasis Confirmed Active Results Radiology Reports * Exam Date Time Procedure Performing Provider Status 11/08/24 9:32 AM US RUQ Ranya Cordero; Auth (Ve rified) Notes: (US RUQ) Reason For Exam: Abdominal Pain;Other: RESULT: US RUQ US RUQ Hx of Present Illness: Sts has been sick since last tuesday- vomited for 3 days- sts was not eating or drnking and thinks she is dehydrated- sts two days ago cough and feels like she dislodged something in left side Productive cough- sts last night popped somthing under her ri; Reason: Other:; Abdominal Pain; Clinical Question(s): Cholecystitis COMPARISON: None. FINDINGS: Liver: Normal in size and echotexture. No focal lesion. Smooth hepatic contour. Main portal vein patent with normal hepatopetal direction of flow. Gallbladder: No gallstones. Normal wall thickness. No pericholecystic fluid. Negative Nagy sign. Biliary Tree: No intrahepatic or extrahepatic bile duct dilation is identified. Common duct measures: 0.7 cm. Pancreas: No abnormality in the visualized portions of the pancreas. Right kidney: 12.5 cm in length. Normal parenchymal echotexture and thickness. No hydronephrosis, stone or mass. IMPRESSION: 1. Unremarkable right upper quadrant ultrasound. 2. No sonographic evidence of acute cholecystitis WSN: [id number] Ordering Physician: Dimitri Sharma Dictated By: Chela Cobb MD Dictated Date/Time: 11/08/24 10:00 a Reviewed By: Chela Cobb MD Signed By: Chela Cobb MD Signed Date/Time: 11/08/24 10:00 am Transcribed By: DODIE Transcribed Date/Time: 11/08/24 9:43 am * Exam Date Time Procedure Performing Provider Status 11/08/24 8:49 AM Chest 2 Views Frontal and Lat Marie Fischer; Supriya (Verified) Notes: (Chest 2 Views Frontal and Lat) Reason For Exam: Chest Pain;Other: RESULT: Chest 2 Views Frontal and Lat Chest 2 Views Frontal and Lat Hx of Present Illness: Sts has been sick since last tuesday- vomited for 3 days- sts was not eating or drnking and thinks she is dehydrated- sts two days ago cough and feels like she dislodged something in left side Productive cough- sts last night popped somthing under her ri; Reason: Other:; Chest Pain; Clinical Question(s): Other: COMPARISON: None. FINDINGS: LINES AND TUBES: None. LUNGS AND PLEURA: Clear lungs. Normal pulmonary vascularity. No pleural effusion. No pneumothorax. HEART, MEDIASTINUM AND NIDIA: Heart is normal in size. Normal mediastinal and hilar contour. BONES AND SOFT TISSUES: No acute abnormality. IMPRESSION: No acute abnormality. WSN: [id number] Ordering Physician: Robin Otto Dictated By: Baldomero Machuca MD, V Dictated Date/Time: 11/08/24 8:55 am Reviewed By: Baldomero Machuca MD, V Signed By: Baldomero Machuca MD, V Signed Date/Time: 11/08/24 8:55 am Transcribed By: DODIE Transcribed Date/Time: 11/08/24 8:53 am Vital Signs Most recent to oldest [Reference Range]: 1 2 3 Height 175 cm (11/08/24 7:13 AM) 175 cm (11/08/24 6:57 AM) Weight 72 kg (11/08/24 7:13 AM) 72 kg (11/08/24 6:57 AM) Oxygen Saturation [94-100 %] 96 % (11/08/24 1:47 PM) 96 % (11/08/24 10:29 AM) 99 % (11/08/24 6:57 AM) Pulse Rate [55-90 bpm] 70 bpm (11/08/24 1:47 PM) 75 bpm (11/08/24 10:29 AM) 89 bpm (11/08/24 6:57 AM) Body Mass Index [18.5-24.99 kg/m2] 23.51 kg/m2 (11/08/24 6:57 AM) Blood Pressure [90-138/55-84 mm Hg] 125/60mm Hg (11/08/24 1:47 PM) 120/72mm Hg (11/08/24 10:29 AM) 145/62mm Hg *H* (11/08/24 6:57 AM) Respiratory Rate [16-30 br/min] 18 br/min (11/08/24 1:47 PM) 18 br/min (11/08/24 10:29 AM) 18 br/min (11/08/24 6:57 AM) Temperature [96.8-100.4 DegF] 98.2 DegF (11/08/24 1:47 PM) 98.0 DegF (11/08/24 10:29 AM) 98.0 DegF (11/08/24 6:57 AM) Mode of Delivery (Oxygen) Room air (11/08/24 1:47 PM) Room air (11/08/24 10:29 AM) Room air (11/08/24 6:57 AM) Blood pressure sites Arm, right (11/08/24 1:47 PM) Arm, left (11/08/24 10:29 AM) Arm, left (11/08/24 6:57 AM) Temperature Route Oral (11/08/24 10:29 AM) Oral (11/08/24 6:57 AM) Dry Weight 72 kg (11/08/24 7:13 AM) 72 kg (11/08/24 6:57 AM) Weight Obtained Via Patient/family state d (11/08/24 7:13 AM) Patient/family stated (11/08/24 6:57 AM) Dry Weight Obtained Via Patient/family s tated (11/08/24 6:57 AM) Social History Social History Type Response Smoking Status Current every day sm oker; Other: 1 ppd; entered on: 06/21/18 Sex Sex Representation Female (finding) EKG study * Event Display: ECG 12-Lead Authored Date: [id number] Please click on pdf link to open report * Event Display: ECG 12-Lead Authored Date: [id number] Ventricular Rate: 76 BPM Atrial Rate: 76 BPM P-R Interval: 144 ms QRS Duration: 80 ms Q-T Interval: 390 ms QTC Calculation(Bazett): 438 ms P [place]: 54 degrees R [place]: 55 degrees T [place]: 70 degrees Normal sinus rhythm Normal ECG When compared with ECG of 12-Sep-2007 13:50, No significant change Confirmed by JUANI DOSS ([id number]) on 11/08/2024 6:35:08 PM [place]: JUANI DOSS * Event Display: EKG Authored Date: [id number] Patient Care team information Care Team Personnel Name: Kwabena Dumont MD Position: Reference Physician Member Role: PCP Address: [address] [place] [address] Kwabena Dumont MD [place], [place] [address] Telecom: [phone] Care Team Related Persons Name: AUSTIN CORTEZ Name: JOSE GARCIA Name: JULIA SANTOS Name: FLOYD SANTOS Insurance Providers Guarantor name: MADINA CORTEZ Health Plan Information #: 1 Payer: [employer] [facility] Member Number: [id number] Policy Number: NA Group Number: NA Health Plan Information #: 2 [facility] Member Number: [id number] Policy Number: NA Group Number: NA
--- OUTSIDE RECORDS SUMMARY | 2024-11-15 11:35 | XMS_ITS | Patient Health Record ---
Author Organization Kwabena Dumont MD Address [address] [place], [place] [id number] Care Team Providers Care Sole Sewer Hand Name Role Phone Kwabena Dumont Primary Care Provider [phone] ALLERGIES Allergen (clinical drug ingredient) Drug/Non Drug Allergy documented on EMR Reaction Allergy Type Onset Date Status varenicline Chantix mood swing Drug Allergy Acti ve sulfamethoxazole / trimethoprim Bactrim diarrhea, h/a nausea Drug Allergy Active RESULTS Component Value Reference Range Notes Hemoglobin A1c Reviewed date:10/16/2024 08:32:28 AM Interpretation: Performing Lab: Notes/Report: Value 7.8 Hemoglobin A1c Urinalysis and Microscopic Reviewed date:03/06/2024 11:20:07 AM Interpretation: Performing Lab:[facility], [address] [place] [phone] Notes/Report: Color Urine Yellow Appearance Urine Clear PH 6.0 5.0-9.0 Glucose Urine UA >=1000 Negative mg/dL Urine Blood Moderate (2+) Negative Specific [place] - Urine >= 1.030 1.005-1.025 Urine Protein Trace Neg-Trace mg/dL Urine Ketones Negative Negative mg/dL Nitrite Urine Negative Negative Leukocyte Esterase Urine Moderate (2+) Negative RBC Urine 11-20 0-2 /HPF WBC Urine >50 0-5 /HPF Squamous Epithelial Cell Urine 0-2 0-2 /HPF Bacteria Urine 2+ None Seen Hyaline Casts Urine 0-2 0-2 /LPF Urine Culture Reviewed date:03/12/2024 12:43:55 PM Interpretation: Performing Lab:[facility], [address] [place] [phone] Notes/Report: O:ESCCOL Escherichia coli Urine Culture Quant Urine Culture > 100,000 cfu/mL Ampicillin >=32 Ceftriaxone Ertapenem <=0.12 Gentamicin <=1 Levofloxacin <=0.12 Nitrofurantoin <=16 Trimethoprim/Sulfamethoxaz ole <=20 Hold Madi Reviewed date:03/08/2024 12:32:40 PM Interpretation: Performing Lab:[facility], [address] [place] [phone] Notes/Report: Joselo Barraza See Note Specimen held untested for 24 hours; Call to request Chemistry testing. Joselo Iqbal Reviewed date:03/08/2024 12:32:23 PM Interpretation: Performing Lab:[facility], [address] [place] [phone] Notes/Report: Joselo Iqbal See Note Specimen held untested for 24 hours; Call to request Chemistry testing. Complete Blood Count Auto Di ff Reviewed date:03/08/2024 07:20:13 PM Interpretation: Performing Lab:[facility], [address] [place] [phone] Notes/Report: White Blood Count 11.1 4.8-10.8 X10*3/uL Red Blood Count 4.91 4.20-5.50 X10*6/uL Hemoglobin 14.9 12.0-16.0 g/dl Hematocrit 45.3 37.0-47.0 % Mean Corpuscular Volume 92.3 80.0-98.0 fL Mean Corpuscular Hemoglobin 30.3 27.0-33.0 pg Mean Corpuscular HGB Conc 32.9 31.0-35.0 g/dl Red Cell Distribution Width 13.8 11.0-16.0 % Platelet Count 264 160-400 X10*3/uL Mean Platelet Volume 10.6 9.4-12.3 fL Neutrophils Percent Auto 63.7 45-73 % Imm Gran Pct Auto 0.5 0.0-0.4 % Lymphocytes Percent Auto 24.6 20-40 % Monocytes Percent Auto 9.9 2-11 % Eosinophils Percent Auto 0.9 0-4 % Basophils Percent Auto 0.4 0-2 % NRBC Pct Auto 0.0 0.0-0.2 /100WBC Neutrophils Absolute Auto 7.1 2.0-8.3 x10*3/u L Imm Gran Abs Auto 0.05 0.00-0.03 X10*3/uL Lymphocytes Absolute Auto 2.7 1.2-4.9 X10*3/u L Monocytes Absolute Auto 1.1 0.1-1.2 X10*3/uL Eosinophils Absolute Auto 0.1 0.0-0.4 X10*3/u L Basophils Absolute Auto 0.0 0.0-0.2 X10*3/uL NRBC Abs Auto 0.000 0.0-0.012 X10*3/uL Comprehensive [place]. Panel Fa st Reviewed date:03/08/2024 12:37:26 PM Interpretation: Performing Lab:[facility], [address] [place] [phone] Notes/Report: Sodium 138 135-145 mmol/L Potassium 3.9 3.3-5.1 mmol/L Chloride 105 96-108 mmol/L Carbon Dioxide 23 22-29 mmol/L Anion Gap 14 12-20 Blood Urea Nitrogen 16 9-16 mg/dL Creatinine 0.74 0.5-1.4 mg/dL Estimated Glomerular Filt Rate > 60 NOTE: For -[place] individuals, multiply the result by 1.210. Chronic Kidney Disease: Estimated GFR < 60 mL/min/1.73m2 Severe Kidney Disease: Estimated GFR < 15 mL/min/1.73m2 Glucose Fasting 146 60-99 mg/dL A fasting glucose of 126 mg/dl or greater on more than one occasion is considered diagnostic of diabetes. Calcium 10.0 8.4-10.2 mg/dL Bilirubin Total 0.4 0.0-1.0 mg/dL Aspartate Amino Transferase 17 5-31 U/L Alanine Aminotransferase 16 0-31 U/L Total Protein 8.1 6.5-8.0 g/dL Albumin Level 4.2 3.5-5.0 g/dL Alkaline Phosphatase 66 39-117 U/L Lipid Panel Reviewed date:03/08/2024 12:26:45 PM Interpretation: Performing Lab:[address] [phone] Notes/Report: Triglycerides 122 <150 mg/dL Desirable Triglyceride: less than 150 mg/dL Borderline High Triglyceride 150-199 mg/dL High Triglyceride: 200-499 mg/dL Very High Triglyceride: greater than or equal to 5OO mg/dL Cholesterol 145 <200 mg/dL Desirable Cholesterol: less than 200 mg/dL Borderline High Cholesterol: 200-239 mg/dL High Cholesterol: greater than 239 mg/dL LDL Cholesterol Calculated 78 <100 mg/dL Desirable LDL: less than 100 mg/dL Near Optimal/Above Optimal LDL: 110-129 mg/dL Borderline High LDL: 130-159 mg/dL High LDL: 160-189 mg/dL Very High LDL: greater than or equal to 190 mg/dL HDL Cholesterol 43 >40 mg/dL Desirable HDL: greater than 40 mg/dL Note: This HDL assay may give artificially low results in patients with liver disease. Hemoglobin A1c Reviewed date:03/08/2024 12:33:11 PM Interpretation: Performing Lab:[address] [phone] Notes/Report: Hemoglobin A1c % 7.3 <6.0 % Hemoglobin A1C Reference Range Adults: 4.8 - 6.0 % Non diabetic: < 6.0 % Goal: < 7.0 % Additional Action Suggested: > 8.0 % Note: Hemoglobin A1c results are invalid for patients with abnormal amounts of HbF. Blood transfusions may impact the HbA1c concentration in the patient sample. Estimated Average Glucose 163 eAG = Estimated average glucose which is %A1C expressed as average glucose, using the formula of the R8Z-Hfrkexr Average Glucose study (ADAG), Diabetes Care, Vol.31,#8, 2007 Drug Screen Urine Reviewed date:03/22/2024 01:06:21 PM Interpretation: Performing Lab:[facility], [address] [place] [phone] Notes/Report: Opiate Screen Urine Not Detected Not Detect Opiate cut-off is 300 ng/mL. Positive results are unconfirmed and should not be used for non-medical purposes. Barbiturates, Urine Not Detected Not Detect Barbiturate cut-off is 200 ng/mL. Positive results are unconfirmed and should not be used for non-medical purposes. Phencyclidine Screen Urine Not Detected Not Detect Phencyclidine cut-off is 25 ng/mL. Positive results are unconfirmed and should not be used for non-medical purposes. Amphetamine Screen Urine Not Detected Not Detect Amphetamine cut-off is 1000 ng/mL. Positive results are unconfirmed and should not be used for non-medical purposes. Benzodiazepines Screen Urine Not Detected Not Detect Benzodiazepine cut-off is 200 ng/mL. Positive results are unconfirmed and should not be used for non-medical purposes. Cocaine Screen Urine Not Detected Not Detect Cocaine cut-off is 300 ng/mL. Positive results are unconfirmed and should not be used for non-medical purposes. Cannabinoid Screen Urine Not Detected Not Detect Cannabinoid cut-off is 50 ng/mL. Positive results are unconfirmed and should not be used for non-medical purposes. Methadone Screen, Urine Not Detected Not Detect ng/mL Methadone cut-off is 300 ng/mL. Positive results are unconfirmed and should not be used for non-medical purposes. Fentanyl, urine Not Detected Not Detect Fentanyl cut-off is 1 ng/mL. Positive results are unconfirmed and should not be used for non-medical purposes. Oxycodone Screen Urine Not Detected Not Detect ng/mL Oxycodone cut-off is 100 ng/mL. Positive results are unconfirmed and should not be used for non-medical purposes. Buprenorphine Scr Not Detected Not Detect ng/mL Buprenorphine cut-off is 5 ng/mL. Positive results are unconfirmed and should not be used for non-medical purposes. UA ClnCatch+Micro w/rflx Cul t Reviewed date:03/22/2024 01:04:37 PM Interpretation: Performing Lab:[facility], [address] [place] [phone] Notes/Report: Urine, Clean Catch Color Urine Yellow Appearance Urine Clear PH 5.5 5.0-9.0 Glucose Urine UA >=1000 Negative mg/dL Urine Blood Negative Negative Specific [place] - Urine >= 1.030 1.005-1.025 Urine Protein Negative Neg-Trace mg/dL Urine Ketones Negative Negative mg/dL Nitrite Urine Negative Negative Leukocyte Esterase Urine Negative Negative RBC Urine 0-2 0-2 /HPF WBC Urine 0-5 0-5 /HPF Squamous Epithelial Cell Urine 0-2 0-2 /HPF Bacteria Urine None Seen None Seen Hyaline Casts Urine 0-2 0-2 /LPF Glucose, finger stick Reviewed date:10/16/2024 08:26:12 AM Interpretation: Performing Lab: Notes/Report: Value 169 Glucose, Whole Blood (Not ye t reviewed by provider) Interpretation: Performing Lab:[facility], [address] [place] [phone] Notes/Report: Glucose, Whole Blood 142 60-115 mg/dL METER #: [id number] Testing performed in the [facility]ocrin[facility] Department [facility] , [address], [facility]. REASON FOR REFERRAL Reason DM Diagnosis 1 Type 2 diabetes sidra itus without complications (E11.9) Referral Organization Kwabena Dumont MD Referring Provider First Name Kwabena Referring Provider Last Name Julia Referring Provider Speciality Internal M edicine Referred Provider Constantine Garcia Referred Provider Specialty Endocrinolog y General Notes Lala Newman 08:52:15 AM EST > info faxed, Lala Newman 10/25/2024 01:27:01 PM EST > was told by office patient is aware of appt.Paty Annette 10/25/2024 01:30:50 PM EST > [id number] Paty Slade Annette 10/25/2024 02:21:30 PM EST > [facility] referrals Dr. Aragon [id number] 6v 10-25-2024 to 01-23-2025Paty Annette 10/25/2024 02:25:10 PM EST > appt is with Dr. Rayna Vaughan Referral Priority Routine Referral Appointment Date 11/15/2024 Reason current smoker lung cancer screening Diagnosis 1 Current smoker (F17. 200) Referral Organization Kwabena Dumont MD Referring Provider First Name Kwabena Referring Provider Last Name Julia Referring Provider Speciality Internal M edicine Referred Provider CAMILLE MARIE Referred Provider Specialty Pulmonary Di seases General Notes Lala Newman 11:32:09 AM EST > info faxed , Lala Newman 10/25/2024 01:33:27 PM EST > was told appt is being worked on , Lala Newman 11/02/2024 10:52:15 AM EST > was patient has ot returned there phones calls, left message for patient to call their offie to set up an appt Referral Priority Routine MEDICATIONS Medication SIG (Take, Route, Frequency, Duration) Notes Start Date End Date Status Calcipotriene 0.005 % APPLY A SMALL AMOU NT ONCE DAILY EXTERNALLY ONCE A DAY for 30 Active OneTouch Test n/a as directed In Vitro DX: E11.9 tid for 90 days 09/06/2015 Active Cefpodoxime Proxetil 200 MG 1 tablet with food Orally every 12 hrs Not-Taking Pyridium 200 MG 1 tablet after meals Orally Three times a day Not-Taking Hydrocod Robe-Chlorphe Robe ER 10-8 MG/5ML 5 mL as needed Orally every 12 hrs for 10 days 01/06/2023 Not-Taking Lantus SoloStar 100 UNIT/ML 20 units Subcutaneous daily 02/09/2024 Active Skyrizi (150 MG Dose) 75 MG/0.83ML [...] 4 hrs for 10 days 11/09/2024 Active Albuterol Sulfate (2.5 MG/3ML) 0.083% 3 mL as needed Inhalation every 6 hrs Not-Takin g traZODone HCl 50 MG 1 tablet at bedtime as needed Orally Once a day for 30 days 11/09/2024 Active Januvia 50 MG as directed Orally O nce a day for 30 days 10/16/2024 Active Wixela Inhub 250-50 MCG/ACT INHALE 1 PUFF TWICE A DAY. RINSE MOUTH AFTER USE. for 90 Active OneTouch Ultra - USE THREE TIMES A DA Y TO CHECK BLOOD SUGARS three times a day for 90 days Active IMMUNIZATIONS Vaccine Route Administration Date Status Comme nts Flu Vaccine IM Intramuscular 08/06/2011 Administered Flu Vaccine IM Intramuscular 07/31/2012 Administered Flu Vaccine IM Intramuscular 07/10/2013 Administered Fluarix Quadrivalent IM Intramuscular 07/23/2014 Administe red Fluarix Quadrivalent IM Intramuscular 08/07/2015 Administe red Fluarix Quadrivalent IM Intramuscular 12/07/2018 Administe red Fluarix Quadrivalent IM Intramuscular 08/22/2020 Administe red Covid Vaccine Unknown 12/04/2020 Administered [facility] PFIZE R Covid Vaccine Unknown 12/25/2020 Administered Pfizer Fluarix Quadrivalent IM Intramuscular 08/04/2021 Administe red Fluarix Quadrivalent IM Intramuscular 08/27/2021 Administe red SARS-COV-2 Pfizer Unknown 09/09/2021 Administered [facility] SARS-COV-2 Pfizer Unknown 02/20/2022 Administered Fluarix Quadrivalent IM Intramuscular 08/05/2022 Administe red Fluarix Quadrivalent Unknown 01/10/2017 Refused Fluarix Quadrivalent Unknown 12/02/2017 Refused Fluarix Quadrivalent Unknown 07/16/2019 Refused PPSV23 (Pnemovax) Unknown 12/20/2019 Refused Fluarix Quadrivalent Unknown 12/20/2019 Refused Flu Vaccine Unknown 07/23/2014 Pending SOCIAL HISTORY Tobacco Use: Social History Observation Description Date Details (start date - stop date) Current Smoker NA - NA Sex Assigned At : Social History Observation Description Sex Assigned At Unknown Tobacco Use/Smoking Question Answer Notes Patient is a current smoker How often do you smoke cigarettes? every day How many cigarettes a day do you smoke? 11-20 How soon after you wake up d o you smoke your first cigarette? within 5 minutes Are you interested in quitting? Thinking about q uitting Additional Findings: Tobacco User Jose L t cigarette smoker, not currently using another form of tobacco Alcohol Screen Question Answer Notes Did you have a drink contain ing alcohol in the past year? Yes How often did you have a dri nk containing alcohol in the past year? 2 to 4 times a month (2 points) How many drinks did you have on a typical day when you were drinking in the past year? 1 or 2 drinks (0 point) How often did you have 6 or more drinks on one occasion in the past year? 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) Problem Tubular adenoma (D36.9) Active confirmed 860026694 Problem Atherosclerosis of abdominal aorta (I70.0) Active confirmed 144091771 Problem Anxiety (F41.9) Active confirmed 574261 02 Problem Primary insomnia (F51.01) Active confirmed 0913136 Problem Tinnitus, bilateral (H93.13) Active confirmed Bilateral tinnitus (8712871916520) Problem Kidney stone (N20.0) Active confirmed 29407145 Problem Arthritis (M19.90) Active confirmed 372 3001 Problem Smoker (F17.200) Active confirmed 03532 002 Problem Psoriasis (L40.9) Active confirmed 9014 002 Problem Type 2 diabetes, controlled, with neuropathy (E11.40) Active confirmed 32115788 Problem History of hematuria (Z87.448) Active confirmed 661685366 Problem Elevated triglycerides with high cholesterol (E78.2) Active confirmed 677452665 Problem Diabetic polyneuropathy associated with type 2 diabetes mellitus (E11.42) Active confirmed 318266042 Problem Current smoker (F17.200) Active confirmed 53041448 Problem Perimenopausal (N95.1) Active confirmed 151958068673475 Problem Carpal tunnel syndrome of left wrist (G56.02) Active confirmed 72492178 Problem Leukocytosis, unspecified type (D72.829) Active confirmed 623968587 Problem Bilateral tinnitus (H93.13) Active confirmed 0331611133889 Problem Uterine leiomyoma, unspecified location (D25.9) Active confirmed 10205395 VITAL SIGNS Blood pressure diastolic 70 mm Hg 11/09/2024 Height 69.5 in 11/09/2024 Blood pressure systolic 140 mm Hg 11/09/2024 Weight 163 lbs 11/09/2024 BMI 23.72 kg/m2 11/09/2024 Encounters Encounter Location Date Provider Diagnosis Kwabena Dumont MD [address] [place] [id number] 03/15/2024 Kwabena Dumont Type 2 diabetes mellitus without complications E11.9 ; Annual physical exam Z00.00 ; After-treatment Z51.89 ; Chronic obstructive pulmonary disease, unspecified J44.9 ; Type 2 diabetes, controlled, with neuropathy E11.40 ; Smoker F17.200 ; Elevated triglycerides with high cholesterol E78.2 and Depression screening Z13.31 Kwabena Dumont MD [address] [place] [id number] 03/08/2024 Kwabena Dumont Blood tests for routine general physical examination Z00.00 ; Type 2 diabetes mellitus without complications E11.9 ; Elevated triglycerides with high cholesterol E78.2 ; History of hematuria Z87.448 ; Leukocytosis, unspecified type D72.829 and Psoriasis L40.9 Kwabena Dumont MD [address] [place] [address] [id number] 03/22/2024 Kwabena Dumont After care Z51.89 an d Medication side effect T88.7XXA Kwabena Dumont MD [address] [place] [address] Drive [address] [place] [id number] 10/16/2024 Kwabena Dumont Type 2 diabetes mellitus without complications E11.9 ; UTI symptoms R39.9 ; Chronic obstructive pulmonary disease, unspecified J44.9 and Current smoker F17.200 Kwabena Dumont MD [address] [place] [address] Drive [address] [place] [id number] 11/09/2024 Kwabena Dumont Strain of abdominal muscle, subsequent encounter S39.011D ; Current smoker F17.200 ; Chronic obstructive pulmonary disease, unspecified J44.9 ; Acute cough R05.1 and Primary insomnia F51.01 Kwabena Dumont MD [address] [facility] [address] [facility] [address] [place] [id number] 02/21/2024 Kwabena Dumont Type 2 diabetes mellitus without complications E11.9 Kwabena Dumont MD [address] [place] [address] [address] [id number] 03/05/2024 Kwabena Dumont Psoriasis L40.9 and Acute UTI N39.0 Kwabena Dumont MD [address] [facility] [address] [place] [id number] 12/05/2023 Kwabena Dumont Chronic obstructive pulmonary disease, unspecified J44.9 Kwabena Dumont MD [address] [place] [id number] 12/06/2023 Kwabena Dumont MD [address] [place] [id number] 02/09/2024 Kwabena Dumont MD [address] [place] [id number] 02/21/2024 Kwabena Dumont MD [address] [place] [id number] 02/23/2024 Kwabena Dumont MD [address] [place] [id number] 05/24/2024 Kwabena Dumont MD [address] [place] [id number] 06/04/2024 Kwabena Dumont MD [address] [place] [id number] 08/30/2024 Kwabena Dumont MD [address] [place] [id number] 12/30/2023 Kwabena Dumont Acute viral syndrome B34.9 Kwabena Dumont MD [address] [place] [id number] 01/03/2024 Kwabena Dumont Acute viral syndrome B34.9 Kwabena Dumont MD [address] [place] [id number] 08/06/2024 Kwabena Dumont Bronchitis J40 ; Acute UTI N39.0 and Vaginal yeast infection B37.31 ASSESSMENTS Encounter Date Diagnosis Assessment Notes Treatment Notes Treatment Clinical Notes 03/15/2024 Type 2 diabetes mellitus without complications (ICD-10 - E11.9) stable, will continue current regiment, not sure if she wants gabapentin 03/15/2024 Annual physical exam (ICD-10 - Z00.00) labs reviewed and discussed with patient 03/08/2024 Type 2 diabetes mellitus without complications (ICD-10 - E11.9) 03/08/2024 Blood tests for routine general physical examination (ICD-10 - Z00.00) 10/16/2024 Type 2 diabetes mellitus without complications (ICD-10 - E11.9) patient verbalized understanding of medication nd directions for use, referral to endocrine at [facility] 10/16/2024 UTI symptoms (ICD-10 - R39.9) having frequent uti's / stopped farxiga aug 23/ going to see urogynecologist this month 11/09/2024 Current smoker (ICD-10 - F17.200) advised to quit, indicated she is not ready 11/09/2024 Strain of abdominal muscle, subsequent encounter (ICD-10 - S39.011D) no treatment needed, 02/21/2024 Type 2 diabetes mellitus without complications (ICD-10 - E11.9) 03/05/2024 Psoriasis (ICD-10 - L40.9) pending labs 03/05/2024 Acute UTI (ICD-10 - N39.0) pending labs, patient verbalized understanding of medicatin and directions for use 12/05/2023 Chronic obstructive pulmonary disease, unspecified (ICD-10 - J44.9) 12/30/2023 Acute viral syndrome (ICD-10 - B34.9) the symptoms are changing and i think she should improve in next week 01/03/2024 Acute viral syndrome (ICD-10 - B34.9) has improved. will observe 08/06/2024 Bronchitis (ICD-10 - J40) 08/06/2024 Acute UTI (ICD-10 - N39.0) patient verblized undestanding of medication and directions for use. feels as though there is burning with urination but more on the skin and may be a yeast infection. wondering why she is getting these and may be related to the farxi. will reevaluate 03/15/2024 After-treatment (ICD-10 - Z51.89) 03/08/2024 Elevated triglycerides with high cholesterol (ICD-10 - E78.2) 03/22/2024 After care (ICD-10 - Z51.89) 10/16/2024 Chronic obstructive pulmonary disease, unspecified (ICD-10 - J44.9) 11/09/2024 Chronic obstructive pulmonary disease, unspecified (ICD-10 - J44.9) would benefit from not smoking, patient verbalized understanding of medication and directions for use 08/06/2024 Vaginal yeast infection (ICD-10 - B37.31) patient verbalized undestanding of medication and directions for use 03/15/2024 Chronic obstructive pulmonary disease, unspecified (ICD-10 - J44.9) stable, will continue current regiment 03/08/2024 History of hematuria (ICD-10 - Z87.448) 03/22/2024 Medication side effect (ICD-10 - T88.7XXA) 10/16/2024 Current smoker (ICD-10 - F17.200) referral to lung cancer screening, no willing to quit 11/09/2024 Acute cough (ICD-10 - R05.1) 03/15/2024 Type 2 diabetes, controlled, with neuropathy (ICD-10 - E11.40) 03/08/2024 Leukocytosis, unspecified type (ICD-10 - D72.829) 11/09/2024 Primary insomnia (ICD-10 - F51.01) 03/15/2024 Smoker (ICD-10 - F17.200) discussed differenent options. may try wellbutrin 03/08/2024 Psoriasis (ICD-10 - L40.9) 03/15/2024 Elevated triglycerides with high cholesterol (ICD-10 - E78.2) stable, will continue to monitor 03/15/2024 Depression screening (ICD-10 - Z13.31) negative screen PLAN OF TREATMENT Pending Test Test Name Order Date Electrocardiogram (EKG) 12/02/2017 Electrocardiogram (EKG) 12/07/2018 CT ABD & PELVIS WITH CONTRAST 09/23/2020 MRI BRAIN NO CONTRAST 08/27/2021 XR CHEST 2 VIEW PA & LAT 01/03/2023 BONE DENSITY DEXA 12/20/2019 US ABD 10/19/2021 Glucose, Whole Blood 11/15/2024 Next Appt Details Provider Name:Kwabena younger, 01/11/2025 07:45:00 AM, [address] [place] [address], [address], [place], [id number], Provider Name:Kwabena younger, 03/11/2025 08:00:00 AM, [address] [place] [address], [address], [place], [id number], Provider Name:Kwabena younger, 03/18/2025 08:30:00 AM, [address], [address], [place], [id number], Insurance Providers Payer Name Payer Address Payer Phone Subscriber Number Group Number Insured Name Patient Relationship to Insured Coverage Start Date Coverage End Date [facility] [address] [place] [id number] [phone] [id number] Emma Roberts Self - patient is the insured MEDICAL (GENERAL) HISTORY Medical History History ICD Code hematuria workup 12/2013 neg with cysto needs repeat ultrasound kidn 2013 to have repeat us kidney 2014. was negative colonoscopy will be schedule d 2017; Colonoscopy done by Dr. Coulter 07/12/18 - repeat 5 years tubular adenoma: 07/13/23 repeat 5 yrs Colonoscopy, History of abnormal pap - needs yearly p ap smear Type 2 diabetes mellitus without complic ations E11.9 refuses statin
--- OUTSIDE RECORDS SUMMARY | 2024-11-15 11:35 | XMS_ITS | Continuity of Care Document ---
Author Organization [facility] [address] [place] [address] Phone [phone] Care Team Providers Care Central Office Inspector Name Role Phone Coleman Dumont Care Team Information Blade Grader Operator [phone] Problems Active Problems Provider Date Type 2 diabetes mellitus Sarah Medley M.D. Onset: 05/25/2022 Diabetic peripheral neuropathy Sarah garcia M.D. Onset: 05/25/2022 Asthma Sarah Medley M.D. Ons et: 05/25/2022 Psoriasis Sarah Medley M.D. Ons et: 05/25/2022 Hypertriglyceridemia Gabbie Keating Onset: 05/25/2022 Recurrent hematuria Sarah Medley M.D. Onset: 05/25/2022 Varicose veins of lower extremity Sarah Rogers M.D. Onset: 05/25/2022 Social History Type Date Description Comments Sex Unknown Lives With Daughter Tobacco Use Start: Unknown Heavy tobacco sm oker (more than 10 cigarettes/day) ETOH Use Consumes 2 bottles of wine p er week Tobacco Use Reviewed: 05/25/22 Patient is a current smoker, smokes every day Smoking Status Reviewed: 05/25/22 Patient is a current smoker, smokes every day Allergies and adverse reactions Active Allergies Criticality Reaction Severity Comments Date Bactrim Unable to assess criticality Nausea 05/25/2022 Chantix Unable to assess criticality anger 05/25/2022 Metformin Unable to assess criticality Diarrhea 05/25/2022 Medications Active Medications SIG Qnty Indications Order ing Provider Date Ouuilgl40cn Tablets 1 by mouth every day 90tabs Sarah Medley M.D. 07/13/2022 Skyrizi Zdv630ox/ml Solution Auto-Inject inject 1 pen every 12 weeks Sarah Medley M.D. Advair Bgkpbh761-92een/Act Aerosol 2 puffs daily. rinse mouthpiece after use. Sarah Medley M.D. Semglee (Yfgn)100Unit/ML Solution Pen-Inject 10-20 units daily Sarah Medley M.D. Ventolin RIV526(90Base) mcg/Act Aerosol 2 puffs daily as needed Sarah Medley M.D. Tramadol XFT26tb Tablets 1/2 to 1 tab daily as needed 30tabs Sarah Medley M.D. Vital Signs Date Vital Result Comment 05/25/2022 11:04am BP Systolic 132 mmHg BP Diastolic 70 mmHg Heart Rate 90 /min Height 68.5 inches 5'8.50 Weight 159.00 lb BMI (Body Mass Index) 23.8 kg/m2 Results Test Acquired Date Facility Test Result H/L Range Note Urinary Microalbumin 05/25/2022 [facility] Micro-Albumin 27.1 mg/L High (<20) 1 Malb/Creat Ratio 36.6 MG/GM High (0-20) Urine Creat For Micro Albumin 74.0 mg/dL Laboratory test finding 05/25/2022 [facility] TSH With Reflex To FT4 0.70 uIU/mL (0.4-4.2 ) Vitamin B12 475 pg/mL (232-124 5) Gad65 Autoantibodies <5.0 2 Laboratory test finding 05/25/2022 Inhouse Glucose Fingerstick 178 Hemoglobin A1c 8.4 1 The urine microalbum in test is designed to monitor renal function. When screening for Bence Buckley proteinuria, urine electrophoresis is recommended. 2 Reference range: 0.0 to 5.0 Unit: U/mL Test performed at [address] [address] Procedures Date Code Description Status 12/22/2022 NSHOWOFF No Show Office Visit Complet ed Medical Devices Description No Information Available Encounters Type Date Location Provider Dx Diagnosis Office Visit 05/25/2022 10:30a Main Office Sarah Medley M.D. E11.40 Type 2 diabetes mellitus with diabetic neuropathy, unsp E78.1 Pure hyperglyceridem ia F17.200 Nicotine dependence, unspecified, uncomplicated Assessments Date Code Description Provider 05/25/2022 E11.40 Type 2 diabetes mellitus with diabetic neuropathy, unspecified Sarah Medley M.D. 05/25/2022 E78.1 Pure hyperglyceridemia Corrine Medley M.D. 05/25/2022 F17.200 Nicotine depende nce, unspecified, uncomplicated Sarah Medley M.D. Plan of Treatment No Information Available Functional Status Description No Information Available Mental Status Description No Information Available Referrals Refer to Reason for Referral Status Appt Niels Sarah Gonzalez M.D. Created [address] [place] [address] [address] [place] [address] [phone]
--- OUTSIDE RECORDS SUMMARY | 2024-11-15 11:35 | XMS_ITS ---
Author Name [facility] Organization Unknown History of Medication Use Medication Directions Dispensed Refills Start Date End Date Stat albuterol sulfateInh farideh 3 ml (inhalation) 4 times per day for 30 [id number] for nebulization4 times per rhhnxiokptobt67seldxficgibt d2.5 mg/3 mL (0.083 %) 02/15/2024 suspe nded FarxigaTake (oral)53157224hqmnybRk frequency recordedoralNo set duration recordedNo set duration amount srcymraeyeumjg94ij 02/15/2024 active CentrumTakeNo date recordedNo form recordedNo frequency recordedNo route recordedNo set duration recordedNo set duration amount recordedactiveNo dosage strength recordedNo dosage strength units of measure recorded 02/15/2024 active amoxicillin-pot clavulanateTake 1 Tablet (oral) every 12 hours for 10 ptvm90010820clssprlhmau 12 hycxgoazk07lznvijbrml304-46 5mg 02/15/2024 active Semglee(insulin glarg-yfgn)PenTake (subcutaneous)96603612iqjsd in penNo frequency recordedsubcutaneousNo set duration recordedNo set duration amount xyjsgqaksrfhwq901 unit/mL(3 mL) 02/15/2024 active albuterol sulfateTak e (inhalation)81259707MKZ aerosol inhalerNo frequency recordedinhalationNo set duration recordedNo set duration amount jvkwjrupswxaui72aef/actuati on 02/15/2024 active prednisoneTake 1 Tab let (oral) 1 time per day for 5 krps17099867fsjvtt7 time per vgnalqj4zcqrajoxogihv34cx 02/15/2024 bae spended SkyriziTake (subcutaneous)No date recordedsyringeNo frequency recordedsubcutaneousNo set duration recordedNo set duration amount jralcetkhfwaso434og/mL 02/15/2024 activ e Advair DiskusTake (inhalation)21295632btyocxm with deviceNo frequency recordedinhalationNo set duration recordedNo set duration amount xmqppcmkglpxwa193-44khp/dos e 02/15/2024 active nebulizer and compressorTake 1 Units (miscellaneous) 1 time per day for 1 ztes13979998Dw form recorded1 time per akpcacafkfhygozf6zhtsjlfnks dedNo dosage strength recordedNo dosage strength units of measure recorded 02/15/2024 bae spended Glennao ElliptaTake (inhalation)No date recordedBlister, With Inhalation DeviceNo frequency recordedinhalationNo set duration recordedNo set duration amount -71eiy/dos e 02/15/2024 active Problems Problem Status Onset Date Problem Type Date of Resoluti on Source Type 2 diabetes mellitus without complications active ProblemAct [facility] Psoriatic arthritis mutilans active ProblemAct [facility] Chronic obstructive pulmonary disease, unspecified active ProblemAct [facility] Streptococcal pharyngitis active 2024-02-13 ProblemAct [facility] Other asthma active ProblemAct [facility]
--- OUTSIDE RECORDS SUMMARY | 2024-11-15 11:35 | XMS_ITS | Patient Health Record ---
Author Organization [facility] Address [address] [place] [address] Care Team Providers Care Band Manager Name Role Phone Kwabena Dumont MD Primary Care Provider Constantine Logan [phone] ALLERGIES Allergen (clinical drug ingredient) Drug/Non Drug Allergy documented on EMR Reaction Allergy Type Onset Date Status sulfamethoxazole / trimethoprim Bactrim Unknown Drug Allergy Active REASON FOR REFERRAL No Information MEDICATIONS Medication SIG (Take, Route, Frequency, Duration) Notes Start Date End Date Status traMADol HCl Not-Pako ing Tylenol 325 MG 1 tablet as needed O rally every 4 hrs Active Advair Diskus Active Ventolin HFA Active clonazePAM Active Semglee (yfgn) 100 UNIT/ML Subcutaneous for 90 Active Skyrizi 150 MG/ML Subcutaneous for 84 Active Farxiga 10 MG Oral for 90 Acti ve SOCIAL HISTORY Tobacco Use: Social History Observation Description Date Details (start date - stop date) Current Smoker NA - NA Sex Assigned At : Social History Observation Description Sex Assigned At Unknown Tobacco Use/Smoking Question Answer Notes Patient is a current smoker How often do you smoke cigarettes? every day How many cigarettes a day do you smoke? 21-30 Alcohol Screen Question Answer Notes Did you have a drink contain ing alcohol in the past year? Yes How often did you have a dri nk containing alcohol in the past year? 2 to 3 times a week (3 points) How many drinks did you have on a typical day when you were drinking in the past year? 3 or 4 drinks (1 point) How often did you have 6 or more drinks on one occasion in the past year? Never (0 point) Points 4 Interpretation Positive PROBLEMS Problem Type ICD Code Onset Dates Problem Status W/U Status Risk SNOMED Code Notes Problem Encounter for screening for malignant neoplasm of colon (Z12.11) Active confirmed 847461710 Problem Preprocedural examination (Z01.818) Active confirmed 836363686332228 Problem Diarrhea, unspecified type (R19.7) Active confirmed 44895734 Problem History of adenomatous polyp of colon (Z86.010) Active confirmed 588042181 Problem Diverticulosis of colon (K57.30) Active confirmed Diverticulosi s of colon (521088440) PLAN OF TREATMENT Pending Test Test Name Order Date CELIAC PANEL #10 05/16/2018 Pathology 07/13/2023 Future Test Test Name Order Date COLONOSCOPY 05/16/2018 COLONOSCOPY 04/14/2023 Insurance Providers Payer Name Payer Address Payer Phone Subscriber Number Group Number Insured Name Patient Relationship to Insured Coverage Start Date Coverage End Date [facility] ([facility] [employer] [facility]) [address] [place] [address] [phone] [id number] MADINA CORTEZ Self - patient is the insured MEDICAL (GENERAL) HISTORY Medical History History ICD Code Diabetes Asthma Urinary incontinence Psoriasis Denies SD,DM,CVA,Lung disease,renal dise ase Colonoscopy in 2018 revealed a small tubular adenoma. Biopsies were negative for microscopic colitis. Negative labs for celiac disease in 2018 Surgical History Surgery Date(Month/Year) Breast biopsy x 2--benign
--- OUTSIDE RECORDS SUMMARY | 2024-11-15 11:35 | XMS_ITS ---
Author Organization [facility] Address [address] [place] [address] Care Team Providers Care Hard Metals Hand Engraver Name Role Phone Julia CAMARENA, Kwabena Primary Care Provider Constantine Logan Unavailable [phone] REASON FOR VISIT screening colon PROBLEMS Problem Type ICD Code Onset Dates Problem Status W/U Status Risk SNOMED Code Notes Problem Diverticulosis of colon (K57.30) Active confirmed Diverticulosi s of colon (511038350) Encounters Encounter Location Date Provider Diagnosis [facility] Outpatient [address] [place] [phone] 07/13/2023 Constantine Coulter Colon cancer scree prudencio Z12.11 ; Colon polyps K63.5 ; Diverticulosis of colon K57.30 and Internal hemorrhoids K64.8 ASSESSMENTS Encounter Date Diagnosis Assessment Notes Treatment Notes Treatment Clinical Notes 07/13/2023 Colon cancer screening (ICD-10 - Z12.11) 07/13/2023 Colon polyps (ICD-10 - K63.5) 07/13/2023 Diverticulosis of colon (ICD-10 - K57.30) 07/13/2023 Internal hemorrhoids (ICD-10 - K64.8) PLAN OF TREATMENT No Information
== END 2024-11-15 11:42 | disposition home or self-care (01) ==
PROVIDERS: PCP Internal Medicine; Visit Provider Internal Medicine
DX: E11.65 Type 2 diabetes mellitus with hyperglycemia (principal); Z79.4 Long term (current) use of insulin

== ENCOUNTER → 2024-11-15 10:52 | Outpatient (BNVA) | payer OTHER, SELFPAY | PROVIDERS: PCP Internal Medicine; Visit Provider Internal Medicine | DX: E11.65 Type 2 diabetes mellitus with hyperglycemia (principal); Z79.4 Long term (current) use of insulin | CPT/HCPCS: 82947 ==